=== PATIENT | female | born 1980 | race Caucasian/White ===

== ENCOUNTER → 2021-04-12 13:15 | Outpatient (BNVA) | payer OTHER, SELFPAY | PROVIDERS: PCP Internal Medicine; Visit Provider Internal Medicine | DX: M46.1 Sacroiliitis, not elsewhere classified (principal); S16.1XXA Strain of muscle, fascia and tendon at neck level, initial encounter; Z98.1 Arthrodesis status | CPT/HCPCS: 99202 ==

== ENCOUNTER 2021-05-26 06:11 | Outpatient (REF) | payer OTHER, SELFPAY ==
--- NOTE | ~2021-05-26 | FL_ITS ---
EXAMINATION: XR FLUOROSCOPY WITH IMAGES CLINICAL INFORMATION: Sacroiliitis COMPARISON: None. TECHNIQUE: Fluoroscopy performed by Roya Mckeon. Fluoroscopy time: 0.3 minutes DAP: 2.27 Gycm2 Images: 3 FINDINGS: There are 3 digital images obtained of the left SI joint space for pain management. FL/FL guidance in treatment room IMPRESSION: Fluoroscopy provided to referring physician for pain management.
== END 2021-05-26 06:12 | disposition home or self-care (01) ==
LOC: HO.RADIR 06:11
PROVIDERS: Visit Provider Internal Medicine
DX: M46.1 Sacroiliitis, not elsewhere classified (principal)
CPT/HCPCS: 27096; J1040; Q9967

== ENCOUNTER → 2021-06-04 09:42 | Outpatient (BNVA) | payer OTHER, SELFPAY | PROVIDERS: PCP Internal Medicine; Visit Provider Internal Medicine | DX: M47.816 Spondylosis without myelopathy or radiculopathy, lumbar region (principal) | CPT/HCPCS: 99212 ==